=== PATIENT | female | born 1975 | race Caucasian/White ===

== ENCOUNTER → 2016-05-01 | Outpatient (CLI) | payer BC ==
[~2016-05-01] MED LIST: APRI28 PO; LEVO50TA6 PO; OXYC-57 PO
--- NOTE | 2016-05-01 15:10 | MAMMOGRAPHY REPORT ---
UNILATERAL LEFT DIGITAL DIAGNOSTIC MAMMOGRAM TOMOSYNTHESIS AND TARGETED LEFT ULTRASOUND: 05/01/2016 CLINICAL HISTORY: 40-year-old female with a family history of breast cancer = grandmother, presents for follow-up in the left breast for a focal asymmetry in the upper outer middle one third of the br east. TECHNIQUE: Left breast tomosynthesis in addition to standard 2D mammography was performed. The curr ent study was also evaluated with the use of computer aided detection (CAD). COMPARISON: Comparison is made to exams dated: 10/28/2015 ultrasound, 10/28/2015 mammogram, 09/30/2015 ma mmogram - [facility], and 11/01/2011 mammogram. BREAST COMPOSITION: There are scattered areas of fibroglandular density in the left breast. FINDINGS: There is a focal asymmetry in the upper outer middle one third of the left breast. It is difficult to accurately measure, but based on the CC view the measurements are approximately 4.9 x 1.8 cm, and in craniocaudal dimension based on the MLO view, it measures 2.7 cm. There is no obviou s associated architectural distortion on the tomosynthesis images and no suspicious clustered microc alcifications. When comparing to the 2012 mammogram, this focal asymmetry is increasingly prominent and although it does not appear significantly changed comparing to the diagnostic spot compression views performed 10/28/2015, it is indeterminate. There are a few stable benign-appearing round microcalcifications elsewhere within the left breast. No other new suspicious mass, architectural distortion or cluster of microcalcifications is seen. Targeted ultrasound was performed throughout the upper outer quadrant of the left breast. There is an island of dense glandular tissue with interspersed hypoechoic ducts in the 1:00 left breast, 3 cm from the nipple, measuring 20.6 x 7.1 mm, but this island of dense tissue effaces in the radial carlos ne. Therefore, it is unclear which portion of this dense fiber glandular tissue definitively correl ates with the mammographic focal asymmetry that is increasingly prominent. IMPRESSION: ACR BI-RADS CATEGORY 4B: INTERMEDIATE SUSPICION FOR MALIGNANCY, TARGETED ULTRASOUND ACR BI-RADS CATEGORY 4B: INTERMEDIATE SUSPICION FOR MALIGNANCY 1. Stereotactic guided biopsy is recommended in the left breast for an increasingly prominent focal asymmetry in the upper outer middle one third of the breast. These results and recommendations were discussed with the patient at the time of the exam. She tent atively scheduled the biopsy prior to leaving our department. Approximately 10% of breast cancers are not detected with mammography. A negative mammographic repor t should not delay biopsy if a clinically suggestive mass is present. Lucina Du M.D. ay/:05/01/2016 10:49:17 Production Team Member: Vesna Mckinnon, [facility] letter sent: Abnormal 4/5 BI-RADS Code: ACR BI-RADS Category 4B: Intermediate Suspicion For Malignancy Ultrasound BI-RADS: AC R BI-RADS Category 4B: Intermediate Suspicion For Malignancy
== END | disposition home or self-care (01) ==
LOC: C.MAMM 08:53
PROVIDERS: ATTEND Obstetrics & Gynecology
DX: R92.8 Other abnormal and inconclusive findings on diagnostic imaging of breast (principal)

== ENCOUNTER → 2016-05-14 | Outpatient (CLI) | payer BC ==
--- NOTE | 2016-05-14 13:28 | Discharge Instructions ---
Discharge Instructions Procedure Procedure Date: May 14, 2016. Reason for visit: Left breast focal asymmetry Discharge Discharge Date: May 14, 2016. Discharge Diagnosis: post left breast stereotactic guided biopsy Instructions Activity Recommendations: Additional Limitations (see below) Return to School/Work: no limitations Recommended Home Diet: No Limitations Provider Instructions: ACTIVITY RECOMMENDATIONS: * No lifting, pushing, pulling or exercising the affected side for three days. RETURN TO SCHOOL/WORK: * You may return to work/school after the procedure, but do not perform any strenuous activities for 24 to 48 hours. MEDICATIONS: * Tylenol (two 325 mg) every four to six hours if needed for mild pain (if not allergic to Tylenol). DIET: * Resume previous diet. SPECIAL CARE INSTRUCTIONS: * Keep biopsy site dry for 24 hours. May shower after 24 hours, but do not soak (bathe) incision. * May remove Tegaderm (plastic patch) tomorrow AFTER showering. * Leave the steri-strips on for one week. Allow the steri-strips to fall off by themselves. If not off after one week, you may remove them. You may place a Bandaid crosswise over the strips, if desired. * Apply ice 10 minutes on and 10 minutes off as needed. * Wear a bra at bedtime to sleep more comfortably for 2-3 days. * Your referring physician should have the results after approximately 5 to 7 business days. * Call for unusual bleeding, fever, drainage, etc or if you have any questions call [phone] during normal business hours or after hours call Dr Du, . FOLLOW UP VISIT: Follow-up with Referring Physician as scheduled. Allergies Coded Allergies: Levofloxacin (Verified Allergy, Intermediate, ITCHY; HIVES, 08/19/14) Penicillins (Verified Allergy, Intermediate, HIVES, 08/19/14) Uncoded Allergies: [id number] (Allergy, Intermediate, ITCHY; HIVES, 10/06/14) Levofloxacin [id number] (Allergy, Intermediate, HIVES, 10/06/14) Penicillins [place] Recommendations: Call your doctor if: * Temperature above 101 degrees * Pain not relieved by pain medicine ordered * There is increased drainage or redness from any incision * You have any unanswered questions or concerns. Your Doctors Instructions noted above were prepared by provider Lucina Du. Patient Signature Section: Patient Instructions Signature Page Andreea Garcia Patient (or Guardian) Signature/Date: I have read and understand the instructions given to me by my caregivers. Caregiver/RN/Doctor Signature/Date: The above-named patient and/or guardian has received patient instructions on this date. + Original Patient Signature Page (only) stays with chart. Please make copy for patient.
--- NOTE | 2016-05-14 15:34 | MAMMOGRAPHY REPORT ---
STEREOTACTIC GUIDED BIOPSY LEFT BREAST: 05/14/2016 CLINICAL HISTORY: 40-year-old with an increasing focal asymmetry in the upper outer middle one third of the left breast. She presents for stereotactic guided biopsy. COMPARISON: Comparison is made to exams dated: 05/01/2016 mammogram, 05/01/2016 ultrasound, 10/28/2015 ul trasound, 10/28/2015 mammogram, and 09/30/2015 mammogram - [facility]. PATIENT CONSENT: After explaining the risks, benefits and alternatives of the procedure to the patie nt, informed consent was obtained both verbally and in writing. Specific risks include: Bleeding, i nfection, puncture of adjacent structure, nontarget biopsy, sampling error and medication reaction. PROCEDURE DESCRIPTION: A time-out was performed and the left breast was confirmed as the site of bio psy. The patient was placed prone on the stereotactic biopsy table and the breast was placed in CC f rom above compression. A printer slotter feeder image was obtained that demonstrated the asymmetry in question. It i s amenable to sterotactic biopsy. Then +15 and -15 stereo pair images were obtained. The asymmetry was targeted utilizing the coordinates obtained with a computer. The skin was prepped with Betadin e. 1% Lidocaine with and without epinipherine was administered as local anesthesia. A small skin inc ision was made. Through the incision, the needle was inserted to the depth determined by the comput er. 10 samples were obtained using a [employer] 9-gauge vacuum-assisted biopsy device. A metallic m arker was placed at the biopsy site. There was no immediate complication. Hemostasis was achieved af ter several minutes of manual compression. The samples were sent to pathology in an appropriately l abeled container. Postprocedure CC and ML views of the left breast demonstrate a dumbbell shaped metallic biopsy marke r within the asymmetry in question, in the upper outer middle one third of the left breast. No sign ificant post biopsy hematoma is seen. IMPRESSION: STEREOTACTIC GUIDED BIOPSY Status post left breast stereotactic guided biopsy of a developing asymmetry in the upper outer midd le one third of the breast, with biopsy marker placed at the site. The patient will receive notification of the biopsy results from her referring physician. Lucina Du M.D. ay/:05/14/2016 15:10:33 Attending Technologist: Cathie CUEVAS(R)(M), [facility] Investment Trader: Cira BUSH)(M), [facility]
--- NOTE | 2016-05-14 15:35 | MAMMOGRAPHY REPORT ---
UNILATERAL LEFT DIAGNOSTIC MAMMOGRAM WITH CAD: 05/14/2016 CLINICAL HISTORY: Status post left breast stereotactic guided biopsy of a focal asymmetry in the upp er outer quadrant. Please refer to the report from left breast stereotactic guided biopsy performed at the same time fo r full detail. IMPRESSION: POST PROCEDURE IMAGING FOR MARKER PLACEMENT Please refer to the report from left breast stereotactic guided biopsy performed at the same time fo r full detail. Approximately 10% of breast cancers are not detected with mammography. A negative mammographic repor t should not delay biopsy if a clinically suggestive mass is present. Lucina Du M.D. ay/:05/14/2016 13:30:46 Attending Technologist: Cathie Hutchins RT(R)(M), [facility] Industrial Insulator: Cira Logan RT(R)(M), [facility] BI-RADS Code: Post Procedure Imaging For Marker Placement
== END | disposition home or self-care (01) ==
LOC: C.MAMM 12:47
PROVIDERS: ATTEND Obstetrics & Gynecology
DX: N60.12 Diffuse cystic mastopathy of left breast (principal); R92.8 Other abnormal and inconclusive findings on diagnostic imaging of breast

== ENCOUNTER → 2016-08-10 | Outpatient (CLI) | payer BC | END | disposition home or self-care (01) | LOC: C.PAPS 16:08 | PROVIDERS: ATTEND Obstetrics & Gynecology | DX: Z01.419 Encounter for gynecological examination (general) (routine) without abnormal findings (principal) ==

== ENCOUNTER → 2016-12-06 | Outpatient (CLI) | payer BC ==
--- NOTE | 2016-12-06 12:47 | DIAGNOSTIC IMAGING REPORT ---
CHEST 2 VIEWS ROUTINE HISTORY: 41 years-old Female acute cough COMPARISON: Chest radiograph 03/01/2016 TECHNIQUE: Frontal and lateral views of the chest FINDINGS: Cardiomediastinal and hilar silhouettes are within normal limits. There is no pneumothorax, pleural effusion or focal airspace consolidation. Mild right hemidiaphragmatic elevation is again noted. The bones are grossly intact. Mild multilevel endplate spurring is seen throughout the spine. IMPRESSION: No no acute cardiopulmonary process. No focal airspace consolidation to suggest acute pneumonia. The above report was generated using voice recognition software. It may contain grammatical, syntax or spelling errors. Electronically signed by: Ajit Correia M.D. 12/06/2016 12:46 PM Dictated Date/Time: 12/06/2016 12:45 PM
== END | disposition home or self-care (01) ==
LOC: C.RAD1850 12:27
PROVIDERS: ATTEND Physician Assistant
DX: R05 Cough (principal)

== ENCOUNTER → 2017-04-03 | Outpatient (CLI) | payer BC | END | disposition home or self-care (01) | LOC: C.LABSPEC 04-02 11:29 | PROVIDERS: ATTEND Obstetrics & Gynecology | DX: B37.3 Candidiasis of vulva and vagina (principal) ==

== ENCOUNTER → 2017-07-25 | Outpatient (CLI) | payer BC | END | disposition home or self-care (01) | LOC: C.LABSPEC 13:19 | PROVIDERS: ATTEND Physician Assistant | DX: Z30.430 Encounter for insertion of intrauterine contraceptive device (principal) ==